=== PATIENT | female | born 1975 | race Hispanic/Latino ===

== ENCOUNTER 2025-01-21 17:28 | Emergency (ER) | payer OTHER ==
[~2025-01-21] VITALS: Ht 172.7 cm; Wt 108.2 kg
[2025-01-21] MEDS ORDERED: IBUPROFEN 200 MG TAB PO SCH (18:15)
[2025-01-21] MEDS: LIDOCAINE HCL 2% LOCAL 20 ML VIAL INJ STA (18:25)
[2025-01-21] MEDS: ACETAMINOPHEN 325 MG TAB PO ONE (18:26)
[2025-01-21] MEDS ORDERED: DOXYCYCLINE HY100 MG PO (18:34)
[2025-01-21] MEDS ORDERED: DIPHENHYDRAMINE25 M2 PO (18:34)
[2025-01-21] MEDS ORDERED: BACTRIM 400-801 EACH PO ×2 (18:34→19:31)
[2025-01-21] MEDS ORDERED: TYLENOL325 MG PO (18:34)
[2025-01-21 19:22] VITALS: PULSE 71; RESP 16; TEMP 97.8; O2SAT 100
[2025-01-21] MEDS ORDERED: PROBIOTIC & AC1 EACH PO (19:31)
== END 2025-01-21 19:22 | disposition home or self-care (01) ==
LOC: FSED 17:33
DX: L02.214 Cutaneous abscess of groin (principal)
CPT/HCPCS: 10061; 96372; 99284; J2003; 10060